=== PATIENT | female | born 1950 | race Caucasian/White ===

== ENCOUNTER → 2023-05-10 08:09 | Outpatient (CLI) | payer MEDICARE, SELFPAY ==
--- NOTE | 2023-05-10 08:14 | US_ITS ---
FINAL REPORT CLINICAL HISTORY: .elv liver enzymes COMPARISON: None FINDINGS: Sonographic images of the right upper quadrant were obtained. The pancreas is partially obscured.The liver has an unremarkable appearance. There is a large gallstone present in the gallbladder. There is no evidence of biliary ductal dilatation.The common duct measures 3 mm. Limited images of the right kidney are unremarkable. IMPRESSION: Large gallstone present in the gallbladder. Reviewed, Interpreted and Dictated by Colt Looney III, MD Transcribed by Karolina Kinsey Authenticated and [facility]
[2023-05-10 09:51] LABS: Iron 105 ug/dL (37-170)
[2023-05-10 10:00] LABS: Total Iron Binding Capacity 374 ug/dL (265-497)
[2023-05-11 17:45] LABS: Actin (Smooth Muscle) Antibody 5 Units (0-19); Mitochondrial (M2) Antibody <20.0 Units (0.0-20.0)
[2023-05-13 20:10] LABS: Alpha-1-Antitrypsin 100 mg/dL (101-187); Phenotype (PI) MZ (.)
[2023-06-15 08:05] LABS: Hep A Ab, Total POSITIVE
[2023-06-15 08:06] LABS: Hepatitis C Antibody Non Reactive
[2023-06-15 08:07] LABS: Antinuclear Antibodies, IFA Positive
[2023-06-15 08:08] LABS: Hep B Surface Ab, Qual Non Reactive
[2023-06-15 08:12] LABS: Fibrosis Score 0.43; Fibrosis Stage F1-F2
[2023-06-15 08:13] LABS: Steatosis Score 0.29
[2023-06-15 08:14] LABS: Alpha 2-Macroglobulins, Qn 255; Haptoglobin 63; NASH Grade N0
[2023-06-15 08:15] LABS: ALT (SGPT) P5P 32; Apolipoprotein A-1 180; Bilirubin, Total 0.7; GGT 23
[2023-06-15 08:16] LABS: AST (SGOT) P5P 44; Cholesterol, Total 151; Glucose 98; Triglycerides 69
== END ==
LOC: RAD 08:10
PROVIDERS: PCP Family Medicine; Visit Provider Internal Medicine Gastroenterology
DX: R79.89 Other specified abnormal findings of blood chemistry (principal)
CPT/HCPCS: 36415; 76705; 80076; 82103; 82104; 83540; 83550; 86038; 86255; 86256; 86706; 86708; 87380

== ENCOUNTER 2025-02-26 10:52 | Outpatient (CLI) | payer MEDICARE, SELFPAY ==
--- OUTSIDE RECORDS SUMMARY | 2025-02-26 10:55 | XMS_ITS | Continuity of Care Document ---
Author Organization [facility] Phone Care Team Providers Care Sound Cutter Name Role Phone RANJIT RANDHAWA Admitting RANJIT RANDHAWA Primary Attending MAVIS CABRERA Primary Care RESULTS Patient: SHEEBA Lindsay Date of : 1950 LABORATORY RESULTS Information is not available LABORATORY NARRATIVE RESULTS Information is not available RADIOLOGY RESULTS ORDER 100: DEXA BONE DENSITY AX (LOINC: 16062-3) ORDER DATE: January 07, 2025 2:57:00 PM [facility] PERFORMING LAB: [address] [id number] Final Result Date: January 07, 2025 3:21:[address] [address] Name: JOHANNA ALY Exam Date: 01/07/2025 : 1950 Age 74 years Gender: F Physician: RANJIT RANDHAWA Facility: [facility] Facility HSV: Outpatient Exam: DEXA BONE DENSITY AX EXAMINATION: DUAL X-RAY ABSORPTIOMETRY (DXA) FOR BONE MINERAL DENSITY. CLINICAL INDICATION: 74 years old, Female. Postmenopausal. M81.0. TECHNIQUE: An axial (e.g., hips, spine) and/or appendicular (e.g., radius) exam was performed, as appropriate, using AutoAlert densitometer. Images are obtained for bone mineral density measurement and are not obtained for diagnostic purposes. [id number] COMPARISON: 11/09/2022. FINDINGS: Scan quality: Good. LUMBAR SPINE (L1-L4): BMD (in g/cm*2): 0.862. T-score: -2.7. Z-score: -1.0. Rate of change from previous exam: -9.5%. LEFT FEMORAL NECK: BMD (in g/cm*2): 0.694. T-score: -2.5. Z-score: -0.6. LEFT TOTAL HIP: BMD (in g/cm*2): 0.667. T-score: -2.7. Z-score: -1.0. Rate of change from previous exam: -9.4%. RIGHT FEMORAL NECK: BMD (in g/cm*2): 0.748. T-score: -2.1. Z-score: -0.2. RIGHT TOTAL HIP: BMD (in g/cm*2): 0.698. T-score: -2.5. Z-score: -0.8. No significant rate of change from previous exam. FRAX 10-YEAR PROBABILITY OF FRACTURE: 10-year fracture risk is performed using the [employer] FRAX calculator based on patient-reported risk factors. Major osteoporotic fracture: 27.1%. Hip fracture: 8.0%. IMPRESSION: Osteoporosis based on BMD. World Health Organization criteria for BMD impression classify patients as: - Normal (T-score at or above -1.0). - Osteopenia (T-score between -1.0 and -2.5). - Osteoporosis (T-score at or below -2.5). Legally authenticated by LISA VALDEZ 2025-01-07 11:21:08 Per the Bone Health and Osteoporosis Foundation the FRAX tool is most useful in patients with low femoral neck bone mineral density (osteopenia). FRAX is calculated per request. RECOMMENDATIONS: 1. All patients should optimize their calcium and vitamin D intake. 2. Consider FDA-approved medical therapies in postmenopausal women and men aged 50 years and older, based on the following: - A hip or vertebral (clinical or morphometric) fracture. - T-score less than or equal to -2.5 at the femoral neck or spine after appropriate evaluation to exclude secondary causes. - Low bone density (T-score between -1.0 and -2.5 at the femoral neck or spine) and a 10-year probability of a hip fracture greater than or equal to 3% or a 10-year probability of a major osteoporosis-related fracture greater than or equal to 20% based on FRAX calculation. - Clinician judgment and/or patient preferences may indicate treatment for people with 10-year fracture probabilities above or below these levels. - Further guidance on treatment can be found at the National Osteoporosis Foundation's website bonesource.org. 3. Patients with diagnosis of osteoporosis or at high risk for fracture should have regular bone mineral density tests. For patients eligible for Medicare, routine testing is allowed once every 2 years. The testing frequency can be increased to one year for patients who have rapidly progressing disease, those who are receiving or discontinuing medical therapy to restore bone mass or have additional risk factors. Electronically signed by: Bebo Gonzalez DO 01/07/2025 04:17 PM EDT RP Dictated By: BEBO GONZALEZ Transcribed By: Transcribed On: 01/07/2025 11:21 AM Electronically signed by: BEBO GONZALEZ 01/07/2025 Thank you for referring JOHANNA ALY to [facility]. Legally authenticated by LISA VALDEZ 2025-01-07 11:21:08 PATHOLOGY NARRATIVE RESULTS Information is not available MICROBIOLOGY RESULTS No Micro Labs/Results Exist for Patient BLOOD ADMIN RESULTS Information is not available MEDICATIONS HOME MEDICATIONS Status RXNORM NDC Medication Dose Route Frequency Dates Comments Reported By Updated By Drug Treatment Unknown DISCHARGE MEDICATIONS Status RXNORM NDC Medication Dose Route Frequency Dates Comments Physician Updated By No Discharge Medication Info rmation Available INPATIENT MEDICATIONS Status RXNORM NDC Medication Dose Route Frequency Rat e Quantity Dates Comments Physician Updated By No Inpatient Medication Info rmation Available SOCIAL HISTORY SOCIAL HISTORY SNOMED-CT Social History Element Description Effective Dates Offered Cessation Comment UpdatedBy [id number] Smoking Status Unknown If Ever Smoked SOCIAL HISTORY - Gender Sex: Female SOCIAL HISTORY - Status : status i nformation is not available Intention in Next Year: intention information is not available SOCIAL HISTORY - Sexual Behavior Sexual Orientation Gender Identity SNOMED-CT Description SNO MED -CT Description Activity Level No of Partners Partner Type UpdatedBy Information is not available HEALTH CONCERNS Problems Concern Status Health Concern problem infor mation not available. Smoking Status Status Years Used Consumed packs p er day Health Concern smoking histo ry information not available. Family History Concern Status Health Concern family histor y information not available. ENCOUNTERS ENCOUNTER INFORMATION Reason for Visit DEXA Admission January 07, 2025 2:47:00 PM [facility] [address] [facility] [address] Discharge January 07, 2025 2:47:00 PM [facility] DI SCHARGED TO HOME OR SELF CARE ENCOUNTER DIAGNOSES Notes information is not edmond ilable. Code System Diagnosis Onset Date Diagnosis information is not available. 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 CURRENT PATHOLOGICAL FRACTURE [id number] on January 11, 2025 3:35:40 AM UT Z88.2 ICD10 ALLERGY STATUS TO SULFONAMID ES [id number] on January 11, 2025 3:35:40 AM [facility] Z88.8 ICD10 ALLERGY STATUS T O OTHER DRUGS, MEDICAMENTS AND BIOLOGICAL SUBSTANCES [id number] on January 11, 2025 3:35:40 AM [facility] CARE TEAM Care Sound Cutter Role RANJIT RANDHAWA Admitting RANJIT RANDHAWA Primary Attending MAVIS CABRERA Primary Care CARE TEAM CARE cab station attendant Role on Team Status Start Date End Date Update d By RICK GAMBLE PCP normal January 01, 2025 8:40:27 PM [facility] January 07, 2025 2:47:00 PM [facility] [id number] on January 01, 2025 8:40:27 PM [facility] SYDNEE Thomas Attending normal January 01 8:40:27 PM [facility] January 07, 2025 2:47:00 PM [facility] [id number] on January 01, 2025 8:40:27 PM [facility] SYDNEE Thomas Admitting normal January 01 8:40:27 PM [facility] January 07, 2025 2:47:00 PM [facility] [id number] on January 01, 2025 8:40:27 PM [facility]
--- OUTSIDE RECORDS SUMMARY | 2025-02-26 10:55 | XMS_ITS | Data Portability ---
Author Organization [facility] CLOS[facility] Address [address] [facility] [address] [place] [address] Care Team Providers Care Beamster Name Role Phone MAVIS CABRERA Primary Care Provider JORGE PATTERSON Stave Bolt Equalizer Assessment No assessment recorded. Plan of Treatment Reminders Order Date Submit Date Provider Last Modified By Organization Details Last Modified Time Details Appointments FOLLOW UP DAK 2025 11:30A M JORGE PATTERSON MD Not available Not available Not available Lab None recorded . Referral None recorded . Procedures None recorded . Surgeries None recorded . Imaging None recorded . Medication Orders None recorded . Patient TargetsNo targets recorded. Patient InstructionsNo instructions recorded. Reason for Referral None Reported. Results Created Date Observation Date Name Description Value Unit Range Abnormal Flag Note LastModifiedBy Organization Detail LastModifiedTime 02/16/20 24 02/16/2024 optic al coher ence tomog pramod, retin a No observ ation record ed. [email or web address] Not Available 2023 15:53:14 02/16/20 24 02/16/2024 visua l field test No observ ation record ed. [email or web address] Not Available 2023 15:51:06 Result Notes None recorded. Procedures Surgical History Date Name Laterality Status Provider Name and Address Organization Details Recorded Time 02/16/20 24 OCT/Retina completed PATSY CLARKE MD [address] [place] [address], [phone], [facility] 02/16/2024 16:15:40 02/16/20 24 Visual Field Intermediate completed PATSY CLARKE MD [address] [place] [address], [phone], [facility] 02/16/2024 16:15:44 Imaging Results Imaging Date Name Status LastModified by Organiz ation Details LastModified Time 02/16/2024 optical coherence tomogram, retina completed [email or web address] Information not available 02/16/2024 15:53:14 02/16/2024 visual field test completed [email or web address] Information not available 02/16/2024 15:51:06 Procedure Notes None recorded. Medical Equipment None Reported. Allergies Allergen ID Allergen Name Allergen Category Reaction Reaction Severity Criticality Documentation Date Start Date Code Code System Note Provider Name and Address Organization Details Recorded Time 348862 Substance with sulfonami de structure and antibacte rial mechanism of action (substanc e) medicatio n Not available Not available Not available 11/29/2023 52043 8003 SNOMED [facility] 11:30:24 357508 Feldene medicatio n Not available Not available Not available 11/29/2023 73730 8 RxNorm [facility] 11:30:28 Medications Name Sig Start Date Stop Date Status Note LastModified by Organization Details LastModified Time etodolac active Not Available Not Avai lable Not Available atorvastatin active Not Available Not Available Not Available calcium active Not Available Not Avail able Not Available folic acid 2023 completed Not Available Not Available Not Available lisinopril active Not Available Not Av ailable Not Available Plaquenil 2024 completed Not Available Not Available Not Available Zyrtec active Not Available Not Availa ble Not Available Centrum active Not Available Not Avail able Not Available Vitals None Recorded Social History Question Answer Notes LastModified by Organizat ion Details LastModified Time Tobacco Smoking Status Never Smoker Yamel Diaz [facility] 11/29/2023 11:31:48 What Is Your Level Of Alcohol Consumption? None [email or web address] Information not available 11/29/2023 What Was The Date Of Your Most Recent Tobacco Screening? 11/29/2023 [email or web address] Information not available 11/29/2023 Sex: Unknown Functional Status None recorded. Mental Status None recorded. Family History Relationship Description Onset Age of this Age Resolved Age Notes LastModified by Organization Details LastModified Time Mother Malignant neoplasm of skin [email or web address] Not available 11/29 11:31:34 Sister Malignant neoplasm of skin [email or web address] Not available 11/29 11:31:34 Medical History Condition Response Squamous Cell Carcinoma Y Basal Cell Carcinoma Y Gynecological HistoryNo gynecological history recorded. Obstetrics History GPAL:G 0 P 0 0 0 0 Past Encounters Encounter ID Performer Location Encounter Start Date Encounter Closed Date Diagnosis/Indication Diagnosis SNOMED-CT Code Diagnosis ICD10 Code Diagnosis Note [id number] JORGE PATTERSON MD [place] [address] [place] [address] 11/29/2023 11:11:11 11/29/2023 11:42:15 History of malignant neoplasm of skin 252255791 Z85.828 L90.5 - No evidence of recurrence today - Call with any worrisome lesions or if treated lesions return - Return at regular intervals for skin exam as recommende d Multiple b enign melanocytic nevi [id number] D22.5 - Benign lesions seen on exam today- SPF 30 or higher broad-spec trum sunscreen recommende d with re-applica tion every 2 hours- Discussed sun protection measures, including wide-brimm ed hat, sun-protec tive clothing, and avoidance of sun during peak hours of 10am-4pm- Avoid tanning beds as these can increase the chances of all 3 types of skin cancer- Instructed to monitor for changes and to call us for appointmen t with any changing or worrisome lesions Seborrheic keratosis [phone] [id number] L82.1 - Benign overgrowth s of skin - Hereditary Senile angioma 9916103 I 78.1 - Benign blood vessel growths - Hereditary Solar lentigo 53781228 L 81.4 - Benign brown spots - Sun-induce d [id number] PATSY CLARKE MD [facility] [address] [place] [address] ,[address] [place] [address] 02/16/2024 15:03:11 02/16/2024 16:29:25 Bilateral age-related nuclear cataracts [id number] 69054 H25.13 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 - started 2000- takes 200mg daily- OCT today showing parafoveal IS/OS granularit y OU- HVF showing paracentra l scotoma OU- reviewed OCT and HVF 10-2 as 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- recommend switching off of Plaquenil to other therapy to reduce risk of worsening retinal pathology and vision deficit (early, asymptomat ic currently) RTC 6 months - DFE, OCT macula [id number] JORGE PATTERSON MD [address] [place] [address] 12/04/2024 10:59:09 12/04/2024 11:24:40 History of malignant neoplasm of skin 283406364 Z85.828 L90.5 - No evidence of recurrence today - Call with any worrisome lesions or if treated lesions return - Return at regular intervals for skin exam as recommende d Multiple b enign melanocytic nevi 737871341 D22.5 - Benign lesions seen on exam today- SPF 30 or higher broad-spec trum sunscreen recommende d with re-applica tion every 2 hours- Discussed sun protection measures, including wide-brimm ed hat, sun-protec tive clothing, and avoidance of sun during peak hours of 10am-4pm- Instructed to monitor for changes and to call us for appointmen t with any changing or worrisome lesions Seborrheic keratosis [phone] L82.1 - Benign overgrowth s of skin - Hereditary Senile angioma 0543251 I 78.1 - Benign blood vessel growths - Hereditary Solar lentigo 75607441 L 81.4 - Benign brown spots - Sun-induce d Health Concerns Section Related Observation LastModified by Organization Detai ls LastModified Time None Recorded Concern Status LastModified by Organization Details LastModified Time None Recorded Advance Directives Directive None Recorded Payers Encounter Date Sequence Insurance Name Policy Number Policy Art Covered Member ID Art Member ID Guarantor Name 11/29/2023 1 [facility] (MEDICARE REPLACEMENT/A DVANTAGE - PPO) [id number] Anum Wange [id number] Anum Powers 02/16/2024 1 [employer] (MEDICARE REPLACEMENT/A DVANTAGE - PPO) [id number] Anum Wange [id number] Anum Powers 12/04/2024 1 [employer] [facility] (MEDICARE REPLACEMENT/A DVANTAGE - PPO) [id number] Anum Wange [id number] [facility] Notes Date Note Type Note Provider Name and Address Organization Details Recorded Time 11/29/2023 text/html Annual skin examhx of BCC/SCC- L Deltoid Shoulder, Scalp spots near bra strapspot on L hand comes and goes JORGE PATTERSON MD [address] [place] [address], [phone], [facility] 11/29/2023 11:46:32 02/16/2024 text/html Here for routine eye exam. Vision doing well, but has trouble with glare at night. Current glasses 10 years old. No other complaints. No h/o eye surgery, trauma, or eye disease. Uses ATs infrequently. Takes Plaquenil, 200mg daily, since 1999. PATSY CLARKE MD [address] [place] [address], [phone], [facility] 02/16/2024 16:28:07 12/04/2024 text/html Annualhx of BCC/SCC- L Deltoid Shoulder, Scalp JORGE PATTERSON MD [address] [place] [address], [phone], [facility] 12/04/2024 11:23:07 OBGyn Episode No OBEpisode recorded.
[2025-02-26 11:45] LABS: Albumin Level 4.4 g/dl (3.5-5.0); Chloride 105 mmol/L (98-107); Sodium 142 mmol/L (136-145)
[2025-02-26 11:46] LABS: Potassium 4.3 mmoL/L (3.5-5.1)
[2025-02-26 11:48] LABS: Alanine Aminotransferase 35 U/L (12-78); Albumin/Globulin Ratio 1.6 (1.1-1.8); Alkaline Phosphatase 109 U/L (38-126); Anion Gap 12.3 mEq/L (5-15); Aspartate Amino Transferase 49 U/L (14-36); Bilirubin,Total 0.7 mg/dl (0.2-1.3); Blood Urea Nitrogen 15 mg/dl (7-17); Carbon Dioxide 29 mmol/L (22.0-30.0); Estimated Glomerular Filt Rate 98 ml/min (>60); GFR (African American) 119 ML/MIN (>60); Globulin 2.7 g/dL (1.3-3.2); Total Protein,Serum 7.1 g/dl (6.3-8.2)
[2025-02-26 11:49] LABS: Calcium 10.5 mg/dl (8.4-10.2); Glucose 99 mg/dl (74-100)
== END 2025-02-26 23:59 | disposition home or self-care (01) ==
LOC: LAB 10:53
PROVIDERS: PCP Family Medicine; Visit Provider Internal Medicine Gastroenterology
DX: E88.01 Alpha-1-antitrypsin deficiency (principal); R94.5 Abnormal results of liver function studies
CPT/HCPCS: 36415; 80053

== ENCOUNTER 2025-09-04 10:53 | Outpatient (CLI) | payer MEDICARE, SELFPAY ==
--- OUTSIDE RECORDS SUMMARY | 2025-09-04 11:15 | XMS_ITS | Encounter Summary ---
[facility] Address [address] [place] [address] Care Team Providers Care Air Brush Decorator Name Role Phone Fernando Dodson MD Primary Care Provider [phone] Encounter Details Date Type Department Care Team (Late Contact Info) Description 05/16/2025 Results Follow-Up [facility] RHE[facility]OLOGY [address] [address] Shoaib Grimm APRN [address] [phone] Social History Tobacco Use Types Packs/Day Years Used Date Smoking Tobacco: Never Passive Smoke Exposure: Past Smokeless Tobacco: Never Alcohol Use Standard Drinks/Week Comments No 0 (1 standard drink = 0.6 oz pur e alcohol) AUDIT-C Answer Date Recorded Frequency of Alcohol Consumption Never 05/31/2019 Average Number of Drinks Not on file 019 Frequency of Binge Drinking Not on file 10/2018 Comments No Sex and Gender Information Value Date Recorded Sex Assigned at Not on file Legal Sex Female 11:36 AM EDT Gender Identity Not on file Sexual Orientation Not on file 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 Not on file Not on file Not on file documented as of this encounter Plan of Treatment Upcoming Encounters Date Type Department Care Team (Late Contact Info) Description 09/11/2025 10:15 AM EST Office Visit [facility] R[facility] [address] [address] Shoaib Grimm, IDRIS [address] [facility] [address] [place] [address] documented as of this encounter Visit Diagnoses Not on filedocumented in this encounter Care Teams Air Brush Decorator Relationship Specialty Start Date End Date Fernando Dodson MD [address] [place] [address] PCP - General Family Medicine 06/22/24 documented as of this encounter
--- OUTSIDE RECORDS SUMMARY | 2025-09-04 11:15 | XMS_ITS ---
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
--- OUTSIDE RECORDS SUMMARY | 2025-09-04 11:15 | XMS_ITS | Encounter Summary ---
[facility] Address [address] [place] [address] Care Team Providers Care Pin Setter Name Role Phone Fernando Dodson MD Primary Care Provider [phone] Encounter Details Date Type Department Care Team (Late Contact Info) Description 01/08/2025 Results Follow-Up [facility] RHEUMATOLOGY [address] [address] Corey Iqbal, [address] [phone] Social History Tobacco Use Types Packs/Day Years Used Date Smoking Tobacco: Never Smokeless Tobacco: Never Alcohol Use Standard Drinks/Week [...] Description 09/11/2025 10:15 AM EST Office Visit [facility] RHE[facility] [address] [address] Shoaib Grimm APRN [address] [address] [place] [address] documented as of this encounter Visit Diagnoses Not on filedocumented in this encounter Care Teams Pin Setter Relationship Specialty Start Date End Date Fernando Dodson MD [address] [place] [address] PCP - General Family Medicine 06/22/24 documented as of this encounter
--- OUTSIDE RECORDS SUMMARY | 2025-09-04 11:16 | XMS_ITS | Encounter Summary ---
[facility] Address [address] [place] [address] Care Team Providers Care Health Program Director Name Role Phone Fernando Dodson MD Primary Care Provider [phone] Encounter Details Date Type Department Care Team (Late Contact Info) Description 05/16/2025 Results Follow-Up [facility] RHEUMATOLOGY [address] [address] Shoaib Grimm APRN [address] [phone] Social History Tobacco Use Types Packs/Day Years [...] Description 09/11/2025 10:15 AM EST Office Visit [facility] RHEUMATOLOGY [address] [address] Shoaib Grimm, IDRIS [address] [facility] [address] [place] [address] documented as of this encounter Visit Diagnoses Not on filedocumented in this encounter Care Teams Health Program Director Relationship Specialty Start Date End Date Fernando Dodson MD [address] [place] [address] PCP - General Family Medicine 06/22/24 documented as of this encounter
--- OUTSIDE RECORDS SUMMARY | 2025-09-04 11:16 | XMS_ITS | Clinical Summary ---
Author Organization [facility] Address [address] [place] [address] Care Team Providers Care [facility] Name Role Phone Fernando Dodson MD Primary Care Provider [phone] Social History Tobacco Use Types Packs/Day Years Used Date Smoking Tobacco: Never Assessed Comments Unknown Sex and Gender Information Value Date Recorded Sex Assigned at Not on file Legal Sex Female 6:56 PM EDT Gender Identity Not on file Sexual Orientation Not on file Plan of Treatment Upcoming Encounters Date Type Department Care Team (Late st Contact Info) Description 05/16/2026 11:00 AM EDT Ovarian Cancer Screening [facility] [address] [place] [address] Health Maintenance Due Date Last Done Comments [facility]-Depression Screening 1950 [facility]-Hepatitis C Screening 1950 [facility]-Medicare Annual Wellness (AWV) 1950 [facility]-/Child/Adol SDOH Screenings 1950 [facility]- SDOH Screenings 1969 [facility]-Adult SDOH Screenings 1969 CT Colonography 1996 Colonoscopy 1996 FIT-DNA 1996 FIT 1996 FOBT 1996 Sigmoidoscopy 1996 [facility]-Colorectal Cancer Screening 1996 [facility]-Breast Cancer Screening 2001 [id number] Vaccine ( season) 2025 06/27/2024, 08/24/2023, 07/25/2022, Additional history exists [facility]-Influenza Vaccine (#1) 07/01/202506/27, 07/25/2022, 08/12/2021, Additional history exists [facility]-RSV Vaccine: 60+ Years or (1 - 1-dose 75+ series) 2026 [facility]-Bone Density Scan 01/07/2027 01/07/2025 [facility]-DTaP,Tdap,and Td Vaccines (3 - Td or Tdap) 03/27/2035 03/27/2025, 09/17/2013 [facility]-Hepatitis A Vaccines Aged Out 05/08/2019, 07/2019 No longer eligible based on patient's age to complete this topic [facility]-Zoster Vaccines Completed 04/03/2020, [facility]-Pneumococcal Vaccine: 50+ Years Completed 06/22/2021, 09/05/2019, 08/19/2017 HPV Vaccines Aged Out No longer eligi ble based on patient's age to complete this topic [facility]-HIB Vaccines Aged Out No longer e ligible based on patient's age to complete this topic [facility]-IPV Vaccines Aged Out No longer e ligible based on patient's age to complete this topic [facility]-Rotavirus Vaccines Aged Out No lo nger eligible based on patient's age to complete this topic [place] [address] Care Teams Hospice Music Therapy Relationship Specialty Start Date End Date Fernando Dodson MD [address] [place] [address] PCP - General 04/15/25
--- OUTSIDE RECORDS SUMMARY | 2025-09-04 11:16 | XMS_ITS | Clinical Summary ---
Demographics Address [address] [place] [address] Home Phone Mobile Phone Email Address [email or web address] Preferred Language Turkish Marital Status Yazidism Affiliation Unknown Race White Ethnic Group Not or Lati no Author Organization [facility] Address [address] [place] [address] Care Team Providers Care Note Taker Name Role Phone Fernando Dodson MD Primary Care Provider [phone] Allergies Active Allergy Reactions Criticality Noted Date Comments Piroxicam Rash Low 09/16/2018 Sulfa Antibiotics Hives 06/28/2017 Medications cetirizine (zyrTEC) 10 MG tablet Take 1 tablet by mouth Daily As Needed for Allergies. Active lisinopril (PRINIVIL,ZESTR IL) 10 MG tablet Take 1 tablet by mouth Daily. Active atorvastatin (LIPITOR) 20 MG tablet Take 1 tablet by mouth Daily. Active Calcium-Vitamin D (CALTRATE 600 PLUS-VIT D PO) Take by mouth. Active vitamin E 100 UNIT capsule Take 1 capsule by mouth Daily. Active saccharomyces boulardii (FLORASTOR) 250 MG capsule Take 1 capsule by mouth 2 (Two) Times a Day. Active Multiple Vitamins-Minera ls (PRESERVISION AREDS 2 PO) Take by mouth. Act urmial Adalimumab (Humira, 2 Pen,) 40 MG/0.4ML Auto-injector Kit Inject 40 mg under the skin into the appropriate area as directed Every 14 (Fourteen) Days. 2 each 5 5 Active alendronate (FOSAMAX) 70 MG tablet TAKE 1 TABLET BY MOUTH EVERY 7 DAYS. 12 tablet 1 5 Active Active Problems Problem Noted Date Diagnosed Date Other fatigue 12/24/2024 Assessment & Plan (12/24/2024 11:07 AM EST): Update Q TB and hepatitis panel with next lab draw. Rheumatoid arthritis involvi ng multiple sites with positive rheumatoid factor 07/17/2024 Assessment & Plan (05/14/2025 10:57 AM EDT): on mtx; no synovitis; chronic left elbow pain/contracture.; x-ray L knee w/mild djd. She has a flexion contracture of left elbow which is Bone on bone, Has seen Dr. Torres in the past who rec elbow replacement when patient is ready. Saw Dr Dickerson who did discuss elbow replacement with her but she is not ready yet. Bilateral Hand Films 11/21: Degenerative changes in the PIP joints. Destruction of the right 2nd MCP Narrowing of the right 4th MCP and the left No new changes since 2014. Since 2016 the second MCP has slightly improved. Bilateral Foot Films Erosive changes at the left 4th and right 3rd MTP. No changes since 2014. MTX stopped 05/2023 due to liver fibrosis seen on US Hand films 07/2023 - MCP changes on the R at 2 and 4 MCP with narrowing and erosion consistent with inflammatory arthritis. Narrowing and erosion of 1st MCP on the L. Foot films 07/2023 - L4th and R 3rd MTP showed erosion. 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 Continue Humira. She has had no synovitis. Continue etodolac bid prn Elbow has been painful for a long time, not any wore. Continue every 4 month labs Orders: Comprehensive Metabolic Panel C-reactive Protein Sedimentation Rate CBC & Differential Assessment & Plan (12/24/2024 11:26 AM EST): on mtx; no synovitis; chronic left elbow pain/contracture.; x-ray L knee w/mild djd. She has a flexion contracture of left elbow which is Bone on bone, Has seen Dr. Torres in the past who rec elbow replacement when patient is ready. Saw Dr Dickerson who did discuss elbow replacement with her but she is not ready yet. Bilateral Hand Films 11/21: Degenerative changes in the PIP joints. Destruction of the right 2nd MCP Narrowing of the right 4th MCP and the left No new changes since 2014. Since 2016 the second MCP has slightly improved. Bilateral Foot Films Erosive changes at the left 4th and right 3rd MTP. No changes since 2014. MTX stopped 05/2023 due to liver fibrosis seen on US Hand films 07/2023 - MCP changes on the R at 2 and 4 MCP with narrowing and erosion consistent with inflammatory arthritis. Narrowing and erosion of 1st MCP on the L. Foot films 07/2023 - L4th and R 3rd MTP showed erosion. 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 We will trial Humira. She denies CHF, history of melanoma (has had other skin cancer on scalp), no demyelinating brain disease, cholesterol well controlled, no diverticulitis. Continue etodolac bid prn Medrol dose pack for flare in left elbow Assessment & Plan (07/17/2024 3:33 PM EDT): on mtx; no synovitis; chronic left elbow pain/contracture.; x-ray L knee w/mild djd. She has a flexion contracture of left elbow which is Bone on bone, Has seen Dr. Torres in the past who rec elbow replacement when patient is ready. Saw Dr Dickerson who did discuss elbow replacement with her but she is not ready yet. Bilateral Hand Films 11/21: Degenerative changes in the PIP joints. Destruction of the right 2nd MCP Narrowing of the right 4th MCP and the left No new changes since 2014. Since 2016 the second MCP has slightly improved. Bilateral Foot Films Erosive changes at the left 4th and right 3rd MTP. No changes since 2014. MTX stopped 05/2023 due to liver fibrosis seen on US Hand films 07/2023 - MCP changes on the R at 2 and 4 MCP with narrowing and erosion consistent with inflammatory arthritis. Narrowing and erosion of 1st MCP on the L. Foot films 07/2023 - L4th and R 3rd MTP showed erosion. Stable on Plaquenil. Plan: Continue 1 plaquenil per day. Doing well. If develops worsening joint pain/stiffness or synovitis, could consider addition of biologic. Continue Etodolac for now. She is taking 2 daily. Chronic pain of right knee 07/17/2024 Assessment & Plan (05/14/2025 10:57 AM EDT): Saw Dr Escobar for OA currently she is doing home exercises to strengthening her Quads. In future she may require injections or surgery with him. Continues to have knee sx with exertion/ Squatting- unchanged. Plan: Possibly needs knee replacements in the future with Dr. De Jesus Currently on hold. Other options have been PT/exercise. She has had injections. She is going to have gel injections with Dr. De Jesus. She is not ready for knee replacements. She is walking for exercises. Assessment & Plan (12/24/2024 11:19 AM EST): Saw Dr Escobar for OA currently she is doing home exercises to strengthening her Quads. In future she may require injections or surgery with him. Continues to have knee sx with exertion/ Squatting- unchanged. Plan: Possibly needs knee replacements in the future with Dr. De Jesus Currently on hold. Other options have been PT/exercise. She has had injections. Assessment & Plan (07/17/2024 3:34 PM EDT): Saw Dr Escobar for OA currently she is doing home exercises to strengthening her Quads. In future she may require injections or surgery with him. Continues to have knee sx with exertion/ Squatting- unchanged. Plan: Possibly needs knee replacements in the future with Dr. Escobar. Currently on hold. Other options have been PT/exercise. She does not want injections. Elevated liver function tests 07/17/2024 Assessment & Plan (05/14/2025 10:57 AM EDT): Intermittent since Oct 2021. AST and ALT low 40's and mid 30's. Patient is on statin drugs which can also cause abnormal LFT. She has been on methotrexate 23 years. MTX stopped 05/2023. AST 39 in 08/22 Plan: Seeing Dr. Orellana in [facility] rec she continue statin. Assessment & Plan (12/24/2024 11:19 AM EST): Intermittent since Oct 2021. AST and ALT low 40's and mid 30's. Patient is on statin drugs which can also cause abnormal LFT. She has been on methotrexate 23 years. MTX stopped 05/2023. AST 39 in 08/22 Plan: Seeing Dr. Orellana in [place] [facility] rec she continue statin. Assessment & Plan (07/17/2024 3:35 PM EDT): Intermittent since Oct 2021. AST and ALT low 40's and mid 30's. Patient is on statin drugs which can also cause abnormal LFT. She has been on methotrexate 23 years. MTX stopped 05/2023. AST 39 in 08/22 Plan: Seeing Dr. Orellana. Pcp rec she continue statin. 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 S/p fall booster. 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 S/p fall booster. Plan: CBC, CMP q 6 months- 12/25 Eye check with OCT every 6-12 months- 2023 Assessment & Plan (07/17/2024 3:35 PM EDT): Plaquenil -- well tolerated and effective. S/p Covid vaccines + 2 booster + Bivalent. S/p fall booster. Plan: CBC, CMP q 6 months- 12/24 Eye check with OCT every 6-12 months- 07/23 Osteoporosis 06/19/2024 Overview (06/19/2024): 05/25/2017 Assessment & Plan (05/14/2025 10:57 AM EDT): Osteopenia dx 2012--ring facer--fosamax 2014 ankle fx bumps up to osteoporosis Stopped Fosamax 07/16 and restarted 06/16. Drug Holiday started 07/21. Prolia per PCP First and last dose 07/16- she stopped due to bone pain. DEXA 06/02/[address] [employer] [address]. Singer. Ca 10.6 on 600mg per day in July 2017 Restarted Alendronate May 2017-May 2022 She had one prolia injection with her pcp in the past and had severe bone pain. 10/2017 Dexa scan shows Femoral neck Tscore -1.7, Lumbar spine -2.1 - worsening per report. The patient thinks she has had another dexa since. 07/21- Spine T-score -2.1, L Femoral neck -2.0, Total L hip Tscore - 2.5. To get a value of -2.3 as an average of both total hips. However the total left hip is consistent with Osteoporosis. Based on images that was given her spine stayed the same and her Total hip dropped by 10.9% and femoral neck dropped by 5.9%. DEXA 11/22 - L femoral neck -2.0, stable. Spine -2.5, improved. Stopped fosamax May 2022. DEXA 01/07/25: Lumbar spine -2.7, left femoral neck -2.5, total left hip -2.5, right femoral neck -2.1 and right total hip -2.5 Plan: She has had 7 years total of Fosamax with two holidays. She has restarted Fosamax. In 3 years she will have to have a med change. We discussed Boniva but she is worried about side effetcs. Calcium + D- continue. Weight bearing exercise. No current fractures. Repeat DeXA 02/2027 Orders: Vitamin D,25-Hydroxy Assessment & Plan (12/24/2024 11:21 AM EST): Osteopenia dx 2012--ring facer--fosamax 2014 ankle fx bumps up to osteoporosis Stopped Fosamax 07/16 and restarted 06/16. Drug Holiday started 07/21. Prolia per PCP First and last dose 07/16- she stopped due to bone pain. DEXA 06/02/[address] [employer] [address] [employer] [address]. Singer. Ca 10.6 on 600mg per day in July 2017 Restarted Alendronate May 2017-May 2022 She had one prolia injection with her pcp in the past and had severe bone pain. 10/2017 Dexa scan shows Femoral neck Tscore -1.7, Lumbar spine -2.1 - worsening per report. The patient thinks she has had another dexa since. 07/21- Spine T-score -2.1, L Femoral neck -2.0, Total L hip Tscore - 2.5. To get a value of -2.3 as an average of both total hips. However the total left hip is consistent with Osteoporosis. Based on images that was given her spine stayed the same and her Total hip dropped by 10.9% and femoral neck dropped by 5.9%. DEXA 11/22 - L femoral neck -2.0, stable. Spine -2.5, improved. Stopped fosamax May 2022. Plan: Dexa Due 10/2024 - ordered 12/24/24 Calcium + D- continue. Weight bearing exercise. Patient currently on Drug Holiday. If stable (no fracture) would restart something such as ibandronate 150mg once a month in 1-2 years No current fractures. Assessment & Plan (07/17/2024 3:34 PM EDT): Osteopenia dx 2012--ring facer--fosamax 2014 ankle fx bumps up to osteoporosis Stopped Fosamax 07/16 and restarted 06/16. Drug Holiday started 07/21. Prolia per PCP First and last dose 07/16- she stopped due to bone pain. DEXA 06/02/[address] [employer] [employer] [address]. Singer. Ca 10.6 on 600mg per day in July 2017 Restarted Alendronate May 2017-May 2022 She had one prolia injection with her pcp in the past and had severe bone pain. 10/2017 Dexa scan shows Femoral neck Tscore -1.7, Lumbar spine -2.1 - worsening per report. The patient thinks she has had another dexa since. 07/21- Spine T-score -2.1, L Femoral neck -2.0, Total L hip Tscore - 2.5. To get a value of -2.3 as an average of both total hips. However the total left hip is consistent with Osteoporosis. Based on images that was given her spine stayed the same and her Total hip dropped by 10.9% and femoral neck dropped by 5.9%. DEXA 11/22 - L femoral neck -2.0, stable. Spine -2.5, improved. Stopped fosamax May 2022. Plan: Dexa Due 10/2024 Calcium + D- continue. Weight bearing exercise. Patient currently on Drug Holiday. If stable (no fracture) would restart something such as ibandronate 150mg once a month in 1-2 years No current fractures. Encounters Date Type Department Care Team Description 06/28/2025 Refill [facility] [address] [place] [phone] Shoaib Grimm, IDRIS 06/28/2025 Refill [facility] [address] [address] Shoaib Grimm, IDRIS from Last 3 Months Immunizations Immunization Administration Dates Next Due COVID-19 (UNSPECIFIED) 08/30/2021,02/07/2021,09/2021 Influenza, Unspecified 07/31/2019,08/06/2018,08/2017 Family History Medical History Relation Name Comments Cancer Father Alzheimer's disease Mother Cancer Mother Dementia Mother Heart disease Mother Relation Name Status Comments Father Mother Social History Tobacco Use Types Packs/Day Years Used Date Smoking Tobacco: Never Passive Smoke Exposure: Past Smokeless Tobacco: Never Tobacco Cessation:Counseling Given: Not Answered Alcohol Use Standard Drinks/Week Comments No 0 [...] file Not on file Not on file Last Filed Vital Signs Vital Sign Reading Time Taken Comments Blood Pressure 140/78 05/14/2025 10:21 AM EDT Pulse 76 05/14/2025 10:21 AM EDT Temperature 36.4 C (97.6 F) 05/14/2025 10:21 AM EDT Respiratory Rate 12 09/16/2018 8:17 AM EST Oxygen Saturation 99% 05/31/2019 1:43 PM EDT Inhaled Oxygen Concentration - - Weight 53 kg (116 lb 14.4 oz) 05/14/2025 10:21 A M EDT Height 157.5 cm (5' 2 ) 05/14/2025 10:21 AM EDT Body Mass Index 21.38 05/14/2025 10:21 AM EDT Plan of Treatment Upcoming Encounters Date Type Department Care Team (Late st Contact Info) Description 09/11/2025 10:15 AM EST Office Visit [facility] [address] [facility] [address] [place] [address] Shoaib Grimm APRN [address] [facility] [address] [place] [address] Health Maintenance Due Date Last Done Comments MAMMOGRAM 1991 COLOGUARD 1996 COLON CANCER SCREENING 5 YEA R SIGMOIDOSCOPY 1996 COLONOSCOPY 1996 COLORECTAL CANCER SCREENING 1996 CT COLONOGRAPHY 1996 FECAL OCCULT BLOOD TEST 1996 FIT Testing (1 year) 1996 ANNUAL WELLNESS VISIT 06/28/2017 INFLUENZA VACCINE 05/31/2025 06/27/2024, , 08/12/2021, Additional history exists COVID-19 Vaccine (11 - Mixed Product risk season) 2025 06/27/2024, 08/24/2023, 07/25/2022, Additional history exists DXA SCAN 01/07/2027 01/07/2025, 12/29, 06/19/2024 TDAP/TD VACCINES (3 - Td or Tdap) 03/27/2035 025, 09/17/2013 ZOSTER VACCINE Completed 04/03/2020, 11/05/2019 Pneumococcal Vaccine 50+ Completed 021, 09/05/2019, 08/19/2017 HEPATITIS C SCREENING Completed 12/24/2024 Procedures Procedure Name Priority Date/Time Associated Diagnosis Comments DEXA BONE DENSITY AXIAL Routine 01/07/2025 Osteoporosis, unspecified osteoporosis type, unspecified pathological fracture presence HEPATITIS PANEL, ACUTE Routine 12/24/2024 11:44 AM EST Rheumatoid arthritis involving multiple sites with positive rheumatoid factor High risk medication use Other fatigue from Last 3 Months or Most Recently Relevant to Health Maintenance Results * DEXA Bone Density Axial (01/07/2025) Anatomical Region Laterality Modality Wrist, Hip, L-spine N/A Radiographic Imaging Shoaib Grimm APRN IMG DXA ORDERABLES Fin al Result * Hepatitis Panel, Acute (12/24/2024 11:44 AM EST) Hepatitis B Surface Ag Non-Reacti ve Non-Reacti ve 12/24/2024 11:54 PM EST [facility] Hep A IgM Non-Reacti ve Non-Reacti ve 12/24/2024 11:54 PM EST [facility] Hep B C IgM Non-Reacti ve Non-Reacti ve 12/24/2024 11:54 PM EST [facility] Hepatitis C Ab Non-Reacti ve Non-Reacti ve 12/24/2024 11:54 PM EST [facility] Blood Venipuncture / Unknown 12/24/2024 11:44 AM EST 12/24/2024 11:44 AM EST Narrative [facility] - 12/24/2024 11:54 PM EST Results may be falsely decreased if patient taking Biotin. Shoaib Grimm APRN LAB BLOOD ORDERABLES F inal Result [facility]
[address] [place] [address], from Last 3 Months or Most Recently Relevant to Health Maintenance Insurance [facility] [employer] PPO [place] [id number] Care Teams Note Taker Relationship Specialty Start Date End Date Fernando Dodson MD [address] [place] [address] PCP - General Family Medicine 06/22/24
[2025-09-04 12:20] LABS: Alanine Aminotransferase 34 U/L (12-78); Albumin Level 4.7 g/dl (3.5-5.0); Albumin/Globulin Ratio 1.4 (1.1-1.8); Alkaline Phosphatase 92 U/L (38-126); Anion Gap 11.1 mEq/L (5-15); Aspartate Amino Transferase 46 U/L (14-36); Bilirubin,Total 0.8 mg/dl (0.2-1.3); Blood Urea Nitrogen 15 mg/dl (7-17); Calcium 10.5 mg/dl (8.4-10.2); Carbon Dioxide 31 mmol/L (22.0-30.0); Chloride 100 mmol/L (98-107); Creatinine,Serum 0.60 mg/dl (0.52-1.04); Estimated Glomerular Filt Rate 98 ml/min (>60); GFR (African American) 118 ML/MIN (>60); Globulin 3.3 g/dL (1.3-3.2); Glucose 99 mg/dl (74-100); Potassium 4.1 mmoL/L (3.5-5.1); Sodium 138 mmol/L (136-145); Total Protein,Serum 8.0 g/dl (6.3-8.2)
== END 2025-09-04 23:59 | disposition home or self-care (01) ==
LOC: LAB 10:54
PROVIDERS: PCP Family Medicine; Visit Provider Internal Medicine Gastroenterology
DX: E88.01 Alpha-1-antitrypsin deficiency (principal); R94.5 Abnormal results of liver function studies
CPT/HCPCS: 36415; 80053